=== PATIENT | male | born 1995 | race Hispanic/Latino ===

== ENCOUNTER 2017-03-09 11:07 | Day surgery (SDC) | payer OTHER ==
[2017-03-09] MEDS: NACL 0.9% 1000 ML 1,000 ML IV SCH ×2 (12:26→12:35)
[2017-03-09] MEDS ORDERED: DIPRIVAN 10 MG/ML IV ONE ×2 (13:01→13:23)
--- NOTE | 2017-03-09 13:02 | Anesthesia Day of Surgery ---
Anesthesia Day of Surgery - Day of Surgery Patient Examined: Yes Patient H&P Reviewed: Yes Patient is NPO: Yes
--- NOTE | 2017-03-09 13:02 | Anesthesia Consultation ---
Anesthesia Consult and Med Hx Date of service: 03/09/17 - Airway Anesthetic Teeth Evaluation: Good ROM Head & Neck: Adequate Mental/Hyoid Distance: Adequate Mallampati Class: Class I Intubation Access Assessment: Good - Pulmonary Exam CTA: Yes - Cardiac Exam Cardiac Exam: RRR - Pre-Operative Health Status ASA Pre-Surgery Classification: ASA1 Proposed Anesthetic Plan: General - Additional Comments Anesthesia Medical History Comments: No previous anesthesia complications. Healthy.
--- NOTE | 2017-03-09 13:39 | Operative Report ---
Operative Report Operative Report: Date of procedure: 03/09/2017 Procedure: Colonoscopy Attending physician: Boogie Dunbar MD Explosive Expert: Boogie Dunbar MD Indication: Patient is a 21-year-old male who presents history of recurrent anorectal discomfort with progressive constipation/ altered bowel habits and rectal pain. This colonoscopy is done to evaluate patient so that treatment may be directed based on the findings Consent: Informed consent was obtained after advising the patient and family regarding nature of this procedure, its indications, potential benefits as well as possible complications including but not limited to bleeding perforation and adverse reaction to medication, infection as well as other cardiopulmonary complications. An informed written and verbal consent was then obtained after due opportunity was provided for questions and answers. Monitoring: Patient was monitored continuously with pulse oximetry and electrocardiographic recordings as well as blood pressure recordings. Vital signs remained stable throughout this procedure with no untoward events. Preoperative assessment: Patient was assessed immediately prior to this procedure for capacity to tolerate monitored anesthesia care and moderate sedation as well as general anesthesia. Patient's ASA classification is 1, Mallampati class is 2, Hyomental distance is 3. Instrument: MycooNn videocolonoscope Medications: Propofol given intravenously in divided doses. For details please potential records. Description of procedure: Patient was placed in the left lateral decubitus position after achieving sedation, a digital rectal examination was performed following which the colonoscope was introduced into the anal verge and advanced to the cecum which was identified by the cecal valve, the appendiceal orifice, as well as by the cecal strap and direct transillumination. The colonoscope was subsequently withdrawn with careful inspection of all mucosal surfaces. Patient tolerated this procedure well and was subsequently taken to the recovery room. The following findings were noted. Findings: The entirety of the colon was normal. On the retroflex view at the anal verge, patient had 2 small anal fissures. There were also internal hemorrhoids noted in 3 columns but with no stigmata. Impression: Healing anal fissures Internal hemorrhoids otherwise normal colonoscopy Plan: High-fiber diet Use as needed stool softeners Daily sitz baths Apply lidocaine ointment per rectum as needed Anusol HC suppositories every night as needed
--- NOTE | 2017-03-09 13:41 | Discharge Summary ---
Short Stay Discharge Plan Weight Bearing Status: Weight Bear as Tolerated Diet: other (High fiber diet)
[2017-03-09 14:13] VITALS: BP 111/69
--- NOTE | 2017-03-09 15:56 | Post Anesthesia Evaluation ---
- Post Anesthesia Evaluation Patient Participated: Yes Airway Patent: Yes Stable Respiratory Function: Yes Nausea/Vomiting: No Temp > 96.8F: Yes Pain Manageable: Yes Adequeate Hydration: Yes Anesthesia Complications: No Block Receding Appropriately: Not Applicable Patient on Ventilator: No
== END 2017-03-09 11:08 | disposition home or self-care (01) ==
LOC: GIO 11:07
PROVIDERS: ATTEND Internal Medicine Gastroenterology
DX: K60.2 Anal fissure, unspecified (principal); K64.8 Other hemorrhoids; Z72.89 Other problems related to lifestyle
CPT/HCPCS: 45378; J2704; J7030

== ENCOUNTER 2018-01-05 22:37 | Emergency (ER) | payer OTHER ==
[2018-01-05 23:39] VITALS: BP 123/78
[2018-01-06] MEDS ORDERED: DECADRON IM ONE (00:57)
[2018-01-06] MEDS ORDERED: ATARAX PO ONE (00:57)
--- NOTE | 2018-01-06 00:59 | Emergency Department Report ---
ED Rash HPI - HPI Chief Complaint: Skin Rash Stated Complaint: RASH Time Seen by Provider: 01/06/18 00:55 Duration: 5 Days Location: Neck, Chest, Back, Abdomen Suspected Cause: Unknown Rash Symptoms: Yes Itching, No Facial Swelling, No Tongue/Oral Swelling, No Breathing Difficulties, No Choking Sensation, No Wheezing/Dyspnea, No Peeling, No Blistering, No Fever, No Lightheaded, No Malaise, No Myalgias Severity: moderate Other History: Patient is a 22-year-old male who presents to the ED complaining of generalized skin rash began on . Patient states he went to urgent care last and was given a shot. Patient states rash, abdominal pain but resurfaces the next day so he went back on Thursday. Patient states couple of days ago the rash has gotten worse and spreading. He states he is not allergic to any medications and does not know what he came into contact with. He denies any immune disorders. He denies fever assess chest/nausea/vomiting/ shortness of breath or difficulty breathing ED Review of Systems ROS: Stated complaint: RASH Other details as noted in HPI Constitutional: denies: chills, fever Eyes: denies: eye pain, eye discharge, vision change ENT: denies: ear pain, throat pain Respiratory: denies: cough, shortness of breath, wheezing Cardiovascular: denies: chest pain, palpitations Endocrine: no symptoms reported Gastrointestinal: denies: abdominal pain, nausea, diarrhea Genitourinary: denies: urgency, dysuria Musculoskeletal: denies: back pain, joint swelling, arthralgia Skin: rash, pruritus. denies: lesions Neurological: denies: headache, weakness, numbness, paresthesias, confusion Psychiatric: denies: anxiety, depression Hematological/Lymphatic: denies: easy bleeding, easy bruising ED Past Medical Hx - Past Medical History Previous Medical History?: No - Surgical History Past Surgical History?: No - Social History Smoking Status: Never Smoker Substance Use Type: None - Medications Home Medications: Home Medications Medication Instructions Recorded Confirmed Last Taken Type Dicyclomine 20 mg PO BID 03/09/17 03/09/17 03/03/17 History Calamine/Zinc Oxide [Calamine 1 applic TP BID #1 lotion 01/06/18 Unknown Rx Lotion] Hydroxyzine HCl 25 mg PO QHS #30 tablet 01/06/18 Unknown Rx Prednisone [predniSONE 10 mg 10 mg PO .TAPER #1 tab.ds.pk 01/06/18 Unknown Rx (6-Day Pack, 21 Tabs)] Rash Exam - Exam General: Vital signs noted. No distress. Alert and acting appropriately. HEENT: No Periorbital Edema, No Conjuctival Injection, No Chemosis, No Perioral Edema, No Tongue Edema, No Uvular Edema, No Compromised Airway, No Drooling Lungs: Yes Good Air Exchange (Normal Breath Sounds), No Wheezes, No Ronchi, No Stridor, No Cough, No Labored Respirations, No Retractions, No Use of Accessory Muscles, No Other Abnormal Lung Sounds Heart: Yes Regular, No Murmur Front/Back of Body, Lg (Color): 1 - erythemathous, generalized, whelps, hives, located in squared areas 2 - same like rash Skin: Yes Urticarial Rash, Yes Maculopapular Rash, Yes Erythema, No Morbilliform rash, No Bulla(e), No Excoriations, No Weeping, No Tenderness, No Edema, No Encrustations, No Other Other: Positive: Abdomen Normal, Neurologic Normal, Musculoskeletal Normal ED Course Vital Signs 01/05/18 23:34 Temperature 98.3 F Pulse Rate 63 Blood Pressure 123/78 O2 Sat by Pulse 99 Oximetry ED Medical Decision Making - Medical Decision Making This is a 22-year-old male presents with rash of unknown origin ED course: Patient received dexamethasone and hydroxyzine in the ED he states has been taking Benadryl prior. Discussed with patient to follow up with circuit board assembler as referred. Discussed the patient to return to ED if any worsening symptoms Vital signs are normal patient is in no acute or respiratory distress. Rash seems to have continued unabated he is speaking in normal full sentences Critical care attestation.: If time is entered above; I have spent that time in minutes in the direct care of this critically ill patient, excluding procedure time. ED Disposition Clinical Impression: Pityriasis rosea-like skin eruption, Hives of unknown origin Disposition: TO HOME OR SELFCARE Is pt being admited?: No Does the pt Need Aspirin: No Condition: Stable Instructions: Pityriasis rosea (ED), Urticaria (ED), Contact Dermatitis (ED) Additional Instructions: Make sure to follow up with the primary care physician as discussed. Take all your medications as you've been prescribed. If you have any worsening symptoms or develop new symptoms please return to ED immediately. Prescriptions: Hydroxyzine HCl 25 mg PO QHS #30 tablet Calamine/Zinc Oxide [Calamine Lotion] 1 applic TP BID #1 lotion Prednisone [predniSONE 10 mg (6-Day Pack, 21 Tabs)] 10 mg PO .TAPER #1 tab.ds.pk Referrals: PRIMARY CARE, [Primary Care Provider] - 3-5 Days JOHN KUMAR MD [Staff Physician] - 3-5 Days [facility] [Provider Group] - 3-5 Days Forms: Accompanied Note, Work/School Release Form(ED) Time of Disposition: 01:30
== END 2018-01-06 02:05 | disposition home or self-care (01) ==
LOC: ED 22:37
DX: L42 Pityriasis rosea (principal)
CPT/HCPCS: 96372; 99282; J1100

== ENCOUNTER 2018-09-10 11:00 | Outpatient (CLI) | payer OTHER | END 2018-09-10 11:01 | disposition home or self-care (01) | LOC: SLR 11:00 | PROVIDERS: ATTEND Internal Medicine | DX: G47.33 Obstructive sleep apnea (adult) (pediatric) (principal); R40.0 Somnolence | CPT/HCPCS: 95810 ==